=== PATIENT | female | born 1995 | race Two or more races ===

== ENCOUNTER 2016-02-28 16:42 | Emergency (ER) | payer MEDICAID ==
[~2016-02-28] VITALS: Ht 165.1 cm; Wt 71.2 kg
[~2016-02-28 16:42] MED LIST: ALEEVE; ORAJEL
[2016-02-28 17:03] VITALS: BP 113/55
== END 2016-02-28 17:49 | disposition home or self-care (01) ==
LOC: ER 16:45
DX: S39.012A Strain of muscle, fascia and tendon of lower back, initial encounter (principal); S20.219A Contusion of unspecified front wall of thorax, initial encounter; S70.01XA Contusion of right hip, initial encounter; F14.10 Cocaine abuse, uncomplicated; M54.2 Cervicalgia; V49.59XA Passenger injured in collision with other motor vehicles in traffic accident, initial encounter; Y93.9 Activity, unspecified; Y99.9 Unspecified external cause status; Y92.9 Unspecified place or not applicable

== ENCOUNTER 2016-06-04 23:01 | Emergency (ER) | payer MEDICAID ==
[~2016-06-04] VITALS: Ht 162.6 cm; Wt 68.0 kg
[2016-06-05 00:24] VITALS: BP 110/65
== END 2016-06-05 00:44 | disposition home or self-care (01) ==
LOC: ER 23:04
DX: T65.91XA Toxic effect of unspecified substance, accidental (unintentional), initial encounter (principal); F14.10 Cocaine abuse, uncomplicated; F12.10 Cannabis abuse, uncomplicated; F10.10 Alcohol abuse, uncomplicated; Y92.9 Unspecified place or not applicable
CPT/HCPCS: 80307; 81025

== ENCOUNTER 2017-04-27 17:57 | Emergency (ER) | payer MEDICAID, OTHER ==
[~2017-04-27] VITALS: Ht 162.6 cm; Wt 67.1 kg
[2017-04-27 19:07] VITALS: BP 121/62
[2017-04-27] MEDS ORDERED: HYDROcodone-ACET 10/325MG TAB PO ONE (19:30)
== END 2017-04-27 19:42 | disposition home or self-care (01) ==
LOC: ER 17:59
DX: S13.4XXA Sprain of ligaments of cervical spine, initial encounter (principal); R51 Headache; Z79.899 Other long term (current) drug therapy; V43.52XA Car driver injured in collision with other type car in traffic accident, initial encounter; Y93.89 Activity, other specified; Y92.89 Other specified places as the place of occurrence of the external cause; Y99.8 Other external cause status
CPT/HCPCS: 70450